=== PATIENT | male | born 1970 | race Caucasian/White ===

== ENCOUNTER 2017-05-08 09:01 | Outpatient (CLI) ==
[2013-09-02 15:17] VITALS: BMI 28.7
--- NOTE | 2017-05-08 11:19 | MRI ---
EXAM: MRI left knee without contrast. HISTORY: Anterior left knee pain. 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 No left knee surger y reported. TECHNIQUE: Using a local extremity coil on a high field strength magnet multiplanar multisequence MR I was performed of the left knee without intravenous or intra-articular gadolinium contrast.. FINDINGS: I do not have prior radiographs of the left knee available for comparison at the time of t his dictation. Within the medial compartment medial meniscus is intact without discrete surfacing meniscal tear. Th e medial compartment cartilage shows some mild chondrosis over the weightbearing medial femoral condy le. Within the lateral compartment lateral meniscus is intact without discrete surfacing meniscal tear. The lateral compartment cartilage congruent without focal underlying subchondral edema. Within the patellofemoral compartment the patella seated with intact medial and lateral patellar reti naculum. Mild patellar chondrosis/chondromalacia patella with some fissuring/fibrillation centered o alondra the median ridge. Prominent medial patella plica. The trochlear groove cartilage congruent. Ea rly patellofemoral compartment productive osteophyte formation. Trace left effusion. No large osteochondral loose bodies. Intact anterior and posterior cruciate li gaments. The extensor mechanism is intact.. There is extensive soft tissue fullness with swelling p repatellar/pretibial. There is complex thick walled organized fluid collection spanning approximate 14 cm craniocaudad by 7 cm transverse by 2.2 cm deep lining anterior to the patella and extending inf erior over the tibial tuberosity level. There is unorganized surrounding soft tissue edema/swelling. The medial collateral ligament as well as lateral collateral ligament complex and posterolateral co rner intact. Overall bone marrow signal intensity shows no acute fracture, stress fracture or bone e rosions.. IMPRESSION: No discrete surfacing meniscal tear identified. Mild patellar chondrosis/chondromalacia patella. Trace left effusion. Intact cruciate and collateral ligaments. Extensive soft tissue fullness with swelling/edema which is prepatellar/pretibial. There is superimp osed complex thick walled organized fluid collection spanning 14 cm craniocaudad. Given the history this may reflect some degree of soft tissue contusion with evolving hematoma. This may reflect a com ponent of prepatellar/pretibial bursitis as well. If further evaluation is clinically indicated recom mendation is fluid aspiration/sampling. Recommendation is obtainment and correlation with plain film radiographs of the left knee as none are available for comparison at the time of this dictation.
== END 2017-05-08 09:02 | disposition home or self-care (01) ==
LOC: RAD 09:01
PROVIDERS: ATTEND Nurse Practitioner
DX: M25.562 Pain in left knee (principal)